=== PATIENT | female | born 1990 | race Caucasian/White ===

== ENCOUNTER 2018-02-13 12:48 | Emergency (ER) | payer OTHER ==
--- NOTE | 2018-02-13 13:43 | PHYS DOC ---
Adult General Chief Complaint Chief Complaint: ABDOMINAL PAIN [facility] HPI 27-year-old female presents with right upper quadrant abdominal pain. The patient was diagnosed a few months ago with gallstones. She was unable to schedule surgery at that time. She was feeling well until last month when she began to have pain after eating almost any food. She presents today because the pain started last night and has not let up. She had one episode of vomiting this morning. She is concerned she might have a stone obstructing the common bile duct. She denies fever or chills. Review of Systems Review of Systems Constitutional: Denies fever or chills [] Eyes: Denies change in visual acuity, redness, or eye pain [] HENT: Denies nasal congestion or sore throat [] Respiratory: Denies cough or shortness of breath [] Cardiovascular: No additional information not addressed in HPI [] GI: Right upper quadrant abdominal pain, vomiting[] : Denies dysuria or hematuria [] Musculoskeletal: Denies back pain or joint pain [] Integument: Denies rash or skin lesions [] Neurologic: Denies headache, focal weakness or sensory changes [] Endocrine: Denies polyuria or polydipsia [] All other systems were reviewed and found to be within normal limits, except as documented in this note. Allergies Allergies Allergies Coded Allergies Type Severity Reaction Last Updated Verified No Known Drug Allergies 02/13/18 No Physical Exam Physical Exam Constitutional: Well developed, well nourished, no acute distress, non-toxic appearance. [] HENT: Normocephalic, atraumatic, bilateral external ears normal, oropharynx moist, no oral exudates, nose normal. [] Eyes: PERRLA, EOMI, conjunctiva normal, no discharge. [] Neck: Normal range of motion, no tenderness, supple, no stridor. [] Cardiovascular:Heart rate regular rhythm, no murmur [] Lungs & Thorax: Bilateral breath sounds clear to auscultation [] Abdomen: Bowel sounds normal, soft. Epigastric and right upper quadrant tenderness with guarding.[] Skin: Warm, dry, no erythema, no rash. [] Back: No tenderness, no CVA tenderness. [] Extremities: No tenderness, no cyanosis, no clubbing, ROM intact, no edema. [] Neurologic: Alert and oriented X 3, normal motor function, normal sensory function, no focal deficits noted. [] Psychologic: Affect normal, judgement normal, mood normal. [] EKG EKG [] Radiology/Procedures Radiology/Procedures [] Course & Med Decision Making Course & Med Decision Making Pertinent Labs and Imaging studies reviewed. (See chart for details) The patient's labs are unremarkable. This pain is likely related to her gallbladder disease. She does not appear to have an obstruction or infection at this time. I will discharge her with Toradol oral medication to see if this helps better than [id number] medicines. The patient has also had a cough for a couple of weeks. I do not have evidence of strep or bacterial infection. This is likely viral induced cough. I will give her a trial of Tessalon Perles. She is stable for discharge at this time. [] Dragon Disclaimer Dragon Disclaimer This electronic medical record was generated, in whole or in part, using a voice recognition dictation system. Departure Departure: Referrals: THADDEUS NORIEGA DO, MPH (PCP) Scripts Benzonatate (TESSALON PERLE) 100 Mg Capsule 1 CAP PO TID PRN for COUGH, #30 CAP Prov: AUSTIN JUNE DO 02/13/18 Ketorolac Tromethamine (KETOROLAC TROMETHAMINE) 10 Mg Tablet 1 TAB PO PRN Q6HRS PRN for PAIN, #20 TAB Prov: AUSTIN JUNE DO 02/13/18 AUSTIN JUNE DO Feb 13, 2018 13:43
[2018-02-13 13:55] LABS: BASO # 0.1 x10^3/uL (0.0-0.2); BASO % 1 % (0-3); EOS # 0.2 x10^3/uL (0.0-0.7); EOS % 2 % (0-3); HEMATOCRIT 37.2 % (36.0-47.0); HEMOGLOBIN 12.5 g/dL (12.0-15.5); LYMPH # 2.3 x10^3/uL (1.0-4.8); LYMPH % 28 % (24-48); MEAN CORPUSCULAR HEMOGLOBIN 29 pg (25-35); MEAN CORPUSCULAR HGB CONC 34 g/dL (31-37); MEAN CORPUSCULAR VOLUME 87 fL (79-100); MONO # 0.5 x10^3/uL (0.0-1.1); MONO % 7 % (0-9); NEUT # 5.1 x10^3uL (1.8-7.7); NEUT % 62 % (31-73); PLATELET COUNT 354 x10^3/uL (140-400); RED BLOOD COUNT 4.28 x10^6/uL (3.50-5.40); RED CELL DISTRIBUTION WIDTH 12.5 % (11.5-14.5); WHITE BLOOD COUNT 8.1 x10^3/uL (4.0-11.0)
[2018-02-13] MEDS ORDERED: ONDANSETRON ODT 4 MG TAB.RAPDIS PO ONE (14:00)
[2018-02-13] MEDS ORDERED: ONDANSETRON PF 4 MG/2 ML VIAL. IV ONE (14:00)
[2018-02-13 14:09] LABS: ALBUMIN 3.3 g/dL (3.4-5.0); ALBUMIN/GLOBULIN RATIO 0.8 (1.0-1.7); CALCIUM 8.6 mg/dL (8.5-10.1); CREATININE 0.7 mg/dL (0.6-1.0); POTASSIUM 3.6 mmol/L (3.5-5.1); TOTAL BILIRUBIN 0.9 mg/dL (0.2-1.0); TOTAL PROTEIN 7.2 g/dL (6.4-8.2)
[2018-02-13 14:40] VITALS: BP 116/68
[2018-02-13] MEDS ORDERED: BENZ100C PO (14:47)
[2018-02-13] MEDS ORDERED: KETO10TA PO (14:47)
== END 2018-02-13 14:53 | disposition home or self-care (01) ==
LOC: ER 12:48
DX: R10.11 Right upper quadrant pain (principal); R11.11 Vomiting without nausea; R05 Cough
CPT/HCPCS: 36415; 80053; 85025; 99284; Q0162

== ENCOUNTER 2018-03-06 13:43 | Emergency (ER) | payer OTHER ==
[~2018-03-06] VITALS: Ht 160 cm; Wt 61.2 kg
[~2018-03-06 13:43] MED LIST: BENZ100C PO; KETO10TA PO
[2018-03-06] MEDS ORDERED: ONDANSETRON ODT 4 MG TAB.RAPDIS PO ONE (14:30)
--- NOTE | 2018-03-06 15:04 | RAD ---
CT of the head without contrast, 03/06/2018: HISTORY: Head trauma, visual disturbance The ventricles are within normal limits in size. There is no shift of the midline structures. There is no evidence of acute intracranial hemorrhage or mass effect. There is mucosal thickening in the maxillary, ethmoid and frontal sinuses bilaterally. An air-fluid level is present in the left maxillary sinus. IMPRESSION: 1. No acute intracranial abnormality is detected. 2. Bilateral paranasal sinusitis PQRS Compliance Statement: One or more of the following individualized dose reduction techniques were utilized for this examination: 1. Automated exposure control 2. Adjustment of the mA and/or kV according to patient size 3. Use of iterative reconstruction technique Electronically signed by: Lui Luther MD (03/06/2018 3:01 PM) [facility]
[2018-03-06 15:13] VITALS: BP 115/65
[2018-03-06] MEDS ORDERED: ONDA4TAB7 PO (15:24)
[2018-03-06] MEDS ORDERED: IBUP600T16 PO (15:24)
--- NOTE | 2018-03-06 15:24 | PHYS DOC ---
Past History Past Medical History: No Pertinent History Past Surgical History: No Surgical History Alcohol Use: None Drug Use: None Adult General Chief Complaint Chief Complaint: head injury HPI HPI Patient is a 27 year old female who presents with complaining of head injury. Patient states she was at work 3 days ago and hit the back of her head wall metal against the loss of consciousness. Patient states she had headache that improved yesterday but today she had 1 episode of vomiting and complaining of confusion and blurred vision with headache she was at work without focal neuro deficit, fever and chills, chest pain and shortness of breath. Patient was sent to her primary care physician as a work comp injury and sent to ER for CT of her head. Review of Systems Review of Systems Constitutional: Denies fever or chills [] Eyes: Denies change in visual acuity, redness, or eye pain [] HENT: Denies nasal congestion or sore throat [] Respiratory: Denies cough or shortness of breath [] Cardiovascular: No additional information not addressed in HPI [] GI: Denies abdominal pain, bloody stools or diarrhea, reports nausea and vomiting [] : Denies dysuria or hematuria [] Musculoskeletal: Denies back pain or joint pain [] Integument: Denies rash or skin lesions [] Neurologic: Reports headache, denies focal weakness or sensory changes [] Endocrine: Denies polyuria or polydipsia [] All other systems were reviewed and found to be within normal limits, except as documented in this note. Current Medications Current Medications Current Medications Medications (Trade) Dose Ordered Sig/Mamta Start Time Stop Time Status Last Admin Dose Admin Ibuprofen (Motrin) 600 mg 1X ONCE 03/06/18 15:15 03/06/18 15:16 UNV Ondansetron HCl (Zofran Odt) 4 mg 1X ONCE 03/06/18 14:30 03/06/18 14:31 DC 03/06/18 14:19 4 MG Allergies Allergies Allergies Coded Allergies Type Severity Reaction Last Updated Verified No Known Drug Allergies 02/13/18 No Physical Exam Physical Exam Constitutional: Well developed, well nourished, mild distress, non-toxic appearance. [] HENT: Normocephalic, atraumatic, bilateral external ears normal, oropharynx moist, no oral exudates, nose normal. [] Eyes: PERRLA, EOMI, conjunctiva normal, no discharge. [] Neck: Normal range of motion, no tenderness, supple, no stridor. [] Cardiovascular:Heart rate regular rhythm, no murmur [] Lungs & Thorax: Bilateral breath sounds clear to auscultation [] Abdomen: Bowel sounds normal, soft, no tenderness, no masses, no pulsatile masses. [] Skin: Warm, dry, no erythema, no rash. [] Back: No tenderness, no CVA tenderness. [] Extremities: No tenderness, no cyanosis, no clubbing, ROM intact, no edema. [] Neurologic: Alert and oriented X 3, normal motor function, normal sensory function, no focal deficits noted. [] Psychologic: Affect normal, judgement normal, mood normal. [] Current Patient Data Vital Signs Vital Signs Date Time Temp Pulse Resp B/P (MAP) Pulse Ox O2 Delivery O2 Flow Rate FiO2 03/06/18 13:43 98.7 73 18 99 Room Air EKG EKG [] Radiology/Procedures Radiology/[place] [id number] IMAGING REPORT Signed PATIENT: GIGI CAMPA ACCOUNT: [id number] : 1990 LOCATION: ER AGE: 27 SEX: F EXAM STATUS: REG ER ORD. PHYSICIAN: SANNA FATIMA MD REASON: injury PROCEDURE: CT HEAD WO CONTRAST CT of the head without contrast, 03/06/2018: HISTORY: Head trauma, visual disturbance The ventricles are within normal limits in size. There is no shift of the midline structures. There is no evidence of acute intracranial hemorrhage or mass effect. There is mucosal thickening in the maxillary, ethmoid and frontal sinuses bilaterally. An air-fluid level is present in the left maxillary sinus. IMPRESSION: 1. No acute intracranial abnormality is detected. 2. Bilateral paranasal sinusitis PQRS Compliance Statement: One or more of the following individualized dose reduction techniques were utilized for this examination: 1. Automated exposure control 2. Adjustment of the mA and/or kV according to patient size 3. Use of iterative reconstruction technique Electronically signed by: Lui Luther MD (03/06/2018 3:01 PM) [facility] DICTATED AND SIGNED BY: LUI LUTHER MD DATE: 03/06/18 1459 CC: SANNA FATIMA MD; THADDEUS NORIEGA DO, MPH ~ Course & Med Decision Making Course & Med Decision Making Pertinent Imaging studies reviewed. (See chart for details) Evolution of patient in ER showed 27-year-old female patient with head injury 2 days ago and complaining of confusion and nausea and vomiting. Patient had unremarkable CT head except for paranasal sinusitis and physical exam without sinus tenderness and felt better with Zofran and ibuprofen. Plan discharge patient home to diagnose of concussion. Dragon Disclaimer Dragon Disclaimer This electronic medical record was generated, in whole or in part, using a voice recognition dictation system. Departure Departure: Impression: Primary Impression: Concussion Additional Impressions: Nausea and vomiting Sinusitis Disposition: HOME, SELF-CARE (at 1522) Condition: IMPROVED Referrals: THADDEUS NORIEGA DO, MPH (PCP) Patient Instructions: Concussion and Brain Injury, Nausea and Vomiting Additional Instructions: Drink plenty of liquids Follow-up with your primary care physician in 3-5 days Return to ER if not getting better Scripts Ondansetron Hcl (ZOFRAN) 4 Mg Tablet 1 TAB PO Q6HRS for nausea and vomiting, #12 TAB Prov: SANNA FATIMA MD 03/06/18 Ibuprofen (IBUPROFEN) 600 Mg Tablet 600 MG PO TID for pain, #20 TAB Prov: SANNA FATIMA MD 03/06/18 Problem Qualifiers SANNA FATIMA MD Mar 06, 2018 15:24
[2018-03-06] MEDS ORDERED: IBUPROFEN 600 MG TABLET. PO ONE (15:30)
== END 2018-03-06 15:40 | disposition home or self-care (01) ==
LOC: ER 13:43
DX: S06.0X1A Concussion with loss of consciousness of 30 minutes or less, initial encounter (principal); J32.8 Other chronic sinusitis; R11.2 Nausea with vomiting, unspecified; W22.01XA Walked into wall, initial encounter; Y93.89 Activity, other specified; Y92.89 Other specified places as the place of occurrence of the external cause; Y99.0 Civilian activity done for income or pay
CPT/HCPCS: 70450; 99284; Q0162

== ENCOUNTER 2018-10-09 13:21 | Emergency (ER) | payer OTHER ==
[~2018-10-09 13:21] MED LIST changes: +IBUP600T16 PO; +ONDA4TAB7 PO
[2018-10-09 13:42] VITALS: BP 123/75
[2018-10-09] MEDS ORDERED: IV NORMAL SALINE 1,000ML 1,000 ML IV SCH (13:44)
--- NOTE | 2018-10-09 13:48 | PHYS DOC ---
Past History Past Medical History: Migraines, Other Past Surgical History: No Surgical History Alcohol Use: None Drug Use: None Adult General Chief Complaint Chief Complaint: ABDOMINAL PAIN HPI HPI Patient is a 28 year old female who presents with complaint of left-sided abdominal pain. Patient states that her symptoms started 2 days ago. Notes the pain has been constant along the left side of her abdomen and towards her pelvis. Notes that she has also been passing dark stools and what appears to be dark red blood. States that she is on ibuprofen for treatment of migraines. Isidro riddle was told by her primary doctor to stop taking her ibuprofen and come to the emergency department for evaluation due to concern for GI bleeding. Has not had any fevers. Denies any shortness of breath or chest pain currently. Review of Systems Review of Systems Constitutional: Denies fever or chills [] Eyes: Denies change in visual acuity, redness, or eye pain [] HENT: Denies nasal congestion or sore throat [] Respiratory: Denies cough or shortness of breath [] Cardiovascular: Denies chest pain or edema[] GI: Abdominal pain, bloody stool, denies vomiting[] : Denies dysuria or hematuria [] Musculoskeletal: Denies back pain or joint pain [] Integument: Denies rash or skin lesions [] Neurologic: Denies headache, focal weakness or sensory changes [] All other systems were reviewed and found to be within normal limits, except as documented in this note. Allergies Allergies Allergies Coded Allergies Type Severity Reaction Last Updated Verified No Known Drug Allergies 02/13/18 No Physical Exam Physical Exam Constitutional: Alert, afebrile, appears in moderate discomfort. [] HENT: Normocephalic, atraumatic, bilateral external ears normal, oropharynx moist, no oral exudates, nose normal. [] Eyes: PERRLA, EOMI, conjunctiva normal, no discharge. [] Neck: Normal range of motion, no tenderness, supple, no stridor. [] Cardiovascular:Heart rate regular rhythm, no murmur [] Lungs & Thorax: Bilateral breath sounds clear to auscultation [] Abdomen: Bowel sounds normal, soft, left upper and lower quadrant tenderness to palpation, no masses, no pulsatile masses. Rectal: No external hemorrhoids, nontender on exam, hard dark brown stool palpated, no gross blood[] Skin: Warm, dry, no erythema, no rash. [] Back: No tenderness, no CVA tenderness. [] Extremities: No tenderness, no cyanosis, no clubbing, ROM intact, no edema. [] Neurologic: Alert and oriented X 3, normal motor function, normal sensory function, no focal deficits noted. [] Current Patient Data Vital Signs Vital Signs Date Time Temp Pulse Resp B/P (MAP) Pulse Ox O2 Delivery O2 Flow Rate FiO2 10/09/18 13:42 98.3 82 18 100 Room Air Lab Results Laboratory Tests Test 10/09/18 13:50 10/09/18 14:30 10/09/18 14:47 White Blood Count 7.4 x10^3/uL Red Blood Count 4.40 x10^6/uL Hemoglobin 13.2 g/dL Hematocrit 39.7 % Mean Corpuscular Volume 90 fL Mean Corpuscular Hemoglobin 30 pg Mean Corpuscular Hemoglobin Concent 33 g/dL Red Cell Distribution Width 12.7 % Platelet Count 305 x10^3/uL Neutrophils (%) (Auto) 50 % Lymphocytes (%) (Auto) 39 % Monocytes (%) (Auto) 6 % Eosinophils (%) (Auto) 4 % Basophils (%) (Auto) 1 % Neutrophils # (Auto) 3.7 x10^3uL Lymphocytes # (Auto) 2.9 x10^3/uL Monocytes # (Auto) 0.5 x10^3/uL Eosinophils # (Auto) 0.3 x10^3/uL Basophils # (Auto) 0.1 x10^3/uL Sodium Level 141 mmol/L Potassium Level 3.9 mmol/L Chloride Level 105 mmol/L Carbon Dioxide Level 28 mmol/L Anion Gap 8 Blood Urea Nitrogen 9 mg/dL Creatinine 0.7 mg/dL Estimated GFR (Cockcroft-Gault) 101.1 BUN/Creatinine Ratio 13 Glucose Level 87 mg/dL Calcium Level 8.4 mg/dL Total Bilirubin 0.3 mg/dL Aspartate Amino Transf (AST/SGOT) < 5 U/L Alanine Aminotransferase (ALT/SGPT) 14 U/L Alkaline Phosphatase 45 U/L Total Protein 6.3 g/dL Albumin 3.2 g/dL Albumin/Globulin Ratio 1.0 Lipase 88 U/L Urine Collection Type Unknown Urine Color Yellow Urine Clarity Clear Urine pH 7.5 Urine Specific [place] 1.015 Urine Protein Neg Urine Glucose (UA) Neg mg/dL Urine Ketones (Stick) Neg mg/dL Urine Blood Neg Urine Nitrite Neg Urine Bilirubin Neg Urine Urobilinogen Dipstick 0.2 mg/dL Urine Leukocyte Esterase Trace Urine RBC 0 /HPF Urine WBC Occ /HPF Urine Squamous Epithelial Cells Occ /LPF Urine Bacteria Few /HPF Stool Occult Blood Negative Bedside Urine HCG, Qualitative hcg negative Current Medications Medications (Trade) Dose Ordered Sig/Mamta Route PRN Reason Start Time Stop Time Status Last Admin Dose Admin Fentanyl Citrate (Fentanyl 2ml Vial) 50 mcg PRN Q15MIN PRN IV PAIN GREATER THAN 3/10 10/09/18 14:15 10/10/18 14:14 Sodium Chloride 1,000 ml @ 1,000 mls/hr Q1H IV 10/09/18 13:44 10/09/18 14:43 DC 10/09/18 13:56 Ondansetron HCl (Zofran) 4 mg 1X ONCE IV 10/09/18 14:15 10/09/18 14:16 DC 10/09/18 13:56 Famotidine (Pepcid Vial) 20 mg 1X ONCE IVP 10/09/18 14:15 10/09/18 14:16 DC 10/09/18 13:56 Iohexol (Omnipaque 300 Mg/ml) 75 ml 1X ONCE IV 10/09/18 14:15 10/09/18 14:16 DC 10/09/18 14:58 EKG EKG Not performed[] Radiology/Procedures Radiology/Procedures [place] [id number] IMAGING REPORT Signed PATIENT: GIGI CAMPA ACCOUNT: [id number] : 1990 LOCATION: ER AGE: 28 SEX: F EXAM STATUS: REG ER ORD. PHYSICIAN: ALICIA PECK MD REASON: left sided abdominal pain, blood in stool PROCEDURE: CT ABD PELV W/ IV CONTRST ONLY CT ABD PELV W/ IV CONTRST ONLY Indication: Left-sided abdominal pain, blood in stool Technique: Postcontrast CT imaging was performed of the abdomen pelvis, multiplanar reconstruction images submitted. No oral contrast was given. One or more of the following individualized dose reduction techniques were utilized for this examination: 1. Automated exposure control 2. Adjustment of the mA and/or kV according to patient size 3. Use of iterative reconstruction technique. Comparison: None Findings: There is no abnormality of the limited visualized lung bases. No focal abnormality is identified of the liver, spleen, pancreas. Gallbladder is present without obvious intraluminal abnormality by CT. Both kidneys enhance no hydronephrosis. There is small 0.2 cm likely mid left renal calculus. There is mild distention of the urinary bladder. Accurate evaluation of bowel somewhat limited without oral contrast. Bowel is not considered significantly dilated. There is relative wall prominence of segments of the small bowel in the left abdomen. There is some variable retained stool the colon. At least a segment of normal appendix is believed to be visualized, no significant pericecal inflammatory type change. There may be some small cysts or follicles of the left adnexa. Uterus is deviated to the right. IMPRESSION: 1. There is probable degree of small bowel thickening in the left abdomen as may be seen with enteritis, limited evaluation of bowel without oral contrast. There is variable retained stool in the colon. At least a segment of normal appendix is believed to be visualized. 2. There is suspected small nonobstructive left renal calculus. Electronically signed by: Christiano Lucio MD (10/09/2018 3:17 PM) [id number] DICTATED AND SIGNED BY: CHRISTIANO LUCIO MD DATE: 10/09/18 1517 CC: ALICIA PECK MD; THADDEUS NORIEGA DO, MPH ~ [] Course & Med Decision Making Course & Med Decision Making Pertinent Labs and Imaging studies reviewed. (See chart for details) Patient was given IV fluids, fentanyl, and Zofran. CT imaging shows no acute surgical process causing patient's current symptoms. Mild small bowel thicke sophie was noted that could signify enteritis. Patient does not have fever or leukocytosis. Moderate amount of stool appears throughout the colon. Symptoms may be affected by constipation. Patient prescribed Zofran and Bentyl for outpatient treatment. Also advised to take daily MiraLAX. Recommended follow- up with primary doctor in 2 days. No evidence of acute bleeding based off of today's examination. Advised return to emergency department for any worsening symptoms. Patient was understanding and in agreement with treatment plan.[] Dragon Disclaimer Dragon Disclaimer This electronic medical record was generated, in whole or in part, using a voice recognition dictation system. Departure Departure: Impression: Primary Impression: Abdominal pain Disposition: HOME, SELF-CARE Condition: IMPROVED Referrals: THADDEUS NORIEGA DO, MPH (PCP) Patient Instructions: Abdominal Pain (Nonspecific) Additional Instructions: Your examination and testing thankfully showed no evidence of acute bleeding at today's visit. Your symptoms may be affected by constipation. His recommended that you start treatment with MiraLAX available [id number] once daily. Follow-up with your primary doctor in 2 days for reevaluation. Return to the emergency department for any worsening symptoms. Scripts Ondansetron (ONDANSETRON ODT) 4 Mg Tab.rapdis 1 TAB PO PRN Q6-8HRS PRN for NAUSEA/VOMITING, #16 TAB Prov: ALICIA PECK MD 10/09/18 Dicyclomine Hcl (DICYCLOMINE HCL) 20 Mg Tablet 1 TAB PO TID, #30 TAB 0 Refills Prov: ALICIA PECK MD 10/09/18 Problem Qualifiers Primary Impression: Abdominal pain Abdominal location: left upper quadrant Qualified Codes: R10.12 - Left upper quadrant pain ALICIA PECK MD Oct 09, 2018 13:48
[2018-10-09 14:13] LABS: BASO # 0.1 x10^3/uL (0.0-0.2); BASO % 1 % (0-3); EOS # 0.3 x10^3/uL (0.0-0.7); EOS % 4 % (0-3); HEMATOCRIT 39.7 % (36.0-47.0); HEMOGLOBIN 13.2 g/dL (12.0-15.5); LYMPH # 2.9 x10^3/uL (1.0-4.8); LYMPH % 39 % (24-48); MEAN CORPUSCULAR HEMOGLOBIN 30 pg (25-35); MEAN CORPUSCULAR HGB CONC 33 g/dL (31-37); MEAN CORPUSCULAR VOLUME 90 fL (79-100); MONO # 0.5 x10^3/uL (0.0-1.1); MONO % 6 % (0-9); NEUT # 3.7 x10^3uL (1.8-7.7); NEUT % 50 % (31-73); PLATELET COUNT 305 x10^3/uL (140-400); RED CELL DISTRIBUTION WIDTH 12.7 % (11.5-14.5); WHITE BLOOD COUNT 7.4 x10^3/uL (4.0-11.0)
[2018-10-09] MEDS ORDERED: ONDANSETRON PF 4 MG/2 ML VIAL. IV ONE (14:15)
[2018-10-09] MEDS ORDERED: FAMOTIDINE 20 MG/2 ML VIAL IVP ONE (14:15)
[2018-10-09] MEDS ORDERED: IOHEXOL 300 MG/ML 75 ML VIAL. IV ONE (14:15)
[2018-10-09 14:29] LABS: ALBUMIN 3.2 g/dL (3.4-5.0); ALK PHOS 45 U/L (46-116); ALT (SGPT) 14 U/L (14-59); ANION GAP 8 (6-14); AST (SGOT) < 5 U/L (15-37); BLOOD UREA NITROGEN 9 mg/dL (7-20); BUN/CREATININE RATIO 13 (6-20); CALCIUM 8.4 mg/dL (8.5-10.1); CARBON DIOXIDE 28 mmol/L (21-32); CHLORIDE 105 mmol/L (98-107); CREATININE 0.7 mg/dL (0.6-1.0); GFR 101.1; GLUCOSE 87 mg/dL (70-99); LIPASE 88 U/L (73-393); POTASSIUM 3.9 mmol/L (3.5-5.1); SODIUM 141 mmol/L (136-145); TOTAL BILIRUBIN 0.3 mg/dL (0.2-1.0); TOTAL PROTEIN 6.3 g/dL (6.4-8.2)
[2018-10-09 14:54] LABS: BILIRUBIN,URINE NEG (NEG); CLARITY,URINE CLEAR; COLOR,URINE YELLOW; GLUCOSE,URINE NEG (NEG)
[2018-10-09 14:55] LABS: BACTERIA,URINE FEW /HPF (0-FEW); FECAL OB PT NEGATIVE (NEG); NITRITE,URINE NEG (NEG); RBC,URINE 0 /HPF (0-2); SQUAMOUS EPITHELIAL CELL,UR OCC /LPF; UROBILINOGEN,URINE 0.2 mg/dL (0.2 mg/dL); WBC,URINE OCC /HPF (0-4)
--- NOTE | 2018-10-09 15:20 | RAD ---
CT ABD PELV W/ IV CONTRST ONLY Indication: Left-sided abdominal pain, blood in stool Technique: Postcontrast CT imaging was performed of the abdomen pelvis, multiplanar reconstruction images submitted. No oral contrast was given. One or more of the following individualized dose reduction techniques were utilized for this examination: 1. Automated exposure control 2. Adjustment of the mA and/or kV according to patient size 3. Use of iterative reconstruction technique. Comparison: None Findings: There is no abnormality of the limited visualized lung bases. No focal abnormality is identified of the liver, spleen, pancreas. Gallbladder is present without obvious intraluminal abnormality by CT. Both kidneys enhance no hydronephrosis. There is small 0.2 cm likely mid left renal calculus. There is mild distention of the urinary bladder. Accurate evaluation of bowel somewhat limited without oral contrast. Bowel is not considered significantly dilated. There is relative wall prominence of segments of the small bowel in the left abdomen. There is some variable retained stool the colon. At least a segment of normal appendix is believed to be visualized, no significant pericecal inflammatory type change. There may be some small cysts or follicles of the left adnexa. Uterus is deviated to the right. IMPRESSION: 1. There is probable degree of small bowel thickening in the left abdomen as may be seen with enteritis, limited evaluation of bowel without oral contrast. There is variable retained stool in the colon. At least a segment of normal appendix is believed to be visualized. 2. There is suspected small nonobstructive left renal calculus. Electronically signed by: Luis Handley MD (10/09/2018 3:17 PM) [id number]
[2018-10-09] MEDS ORDERED: DICY20TA3 PO (16:09)
[2018-10-09] MEDS ORDERED: ONDA4TAB12 PO (16:09)
== END 2018-10-09 16:25 | disposition home or self-care (01) ==
LOC: ER 13:21
DX: R10.12 Left upper quadrant pain (principal); R10.32 Left lower quadrant pain; K92.1 Melena; G43.909 Migraine, unspecified, not intractable, without status migrainosus
CPT/HCPCS: 36415; 74177; 80053; 81001; 81025; 82274; 83690; 85025; 87086; 96374; 96375; 99285; J2405; J3490; Q9967; J3010; J7030

== ENCOUNTER 2019-10-12 15:04 | Emergency (ER) | payer OTHER ==
[~2019-10-12] VITALS: Ht 160 cm; Wt 80.7 kg
[~2019-10-12 15:04] MED LIST changes: +DICY20TA3 PO; +ONDA4TAB12 PO
[2019-10-12 15:17] VITALS: BP 134/77
[2019-10-12 16:33] LABS: CALCIUM 8.7 mg/dL (8.5-10.1); CREATININE 0.9 mg/dL (0.6-1.0); GFR 75.1; POTASSIUM 3.7 mmol/L (3.5-5.1)
--- NOTE | 2019-10-12 17:33 | PHYS DOC ---
Past History Past Medical History: Depression, Migraines, Other Additional Past Medical Histor: TBI 2019 Past Surgical History: Other Additional Past Surgical Histo: abdominal hernia repair, multiple D&Cs Alcohol Use: None Drug Use: None Adult General Chief Complaint Chief Complaint: Palpitations HPI HPI Patient is a [age] year old [sex] who presents with [] Review of Systems Review of Systems Constitutional: Denies fever or chills [] Eyes: Denies change in visual acuity, redness, or eye pain [] HENT: Denies nasal congestion or sore throat [] Respiratory: Denies cough or shortness of breath [] Cardiovascular: No additional information not addressed in HPI [] GI: Denies abdominal pain, nausea, vomiting, bloody stools or diarrhea [] : Denies dysuria or hematuria [] Musculoskeletal: Denies back pain or joint pain [] Integument: Denies rash or skin lesions [] Neurologic: Denies headache, focal weakness or sensory changes [] Endocrine: Denies polyuria or polydipsia [] All other systems were reviewed and found to be within normal limits, except as documented in this note. Allergies Allergies Allergies Coded Allergies Type Severity Reaction Last Updated Verified No Known Drug Allergies 02/13/18 No Physical Exam Physical Exam Constitutional: Well developed, well nourished, no acute distress, non-toxic appearance. [] HENT: Normocephalic, atraumatic, bilateral external ears normal, oropharynx mois t, no oral exudates, nose normal. [] Eyes: PERRLA, EOMI, conjunctiva normal, no discharge. [] Neck: Normal range of motion, no tenderness, supple, no stridor. [] Cardiovascular:Heart rate regular rhythm, no murmur [] Lungs & Thorax: Bilateral breath sounds clear to auscultation [] Abdomen: Bowel sounds normal, soft, no tenderness, no masses, no pulsatile masses. [] Skin: Warm, dry, no erythema, no rash. [] Back: No tenderness, no CVA tenderness. [] Extremities: No tenderness, no cyanosis, no clubbing, ROM intact, no edema. [] Neurologic: Alert and oriented X 3, normal motor function, normal sensory function, no focal deficits noted. [] Psychologic: Affect normal, judgement normal, mood normal. [] Current Patient Data Vital Signs Vital Signs Date Time Temp Pulse Resp B/P (MAP) Pulse Ox O2 Delivery O2 Flow Rate FiO2 10/12/19 15:17 99.2 84 16 134/77 (96) 98 Room Air Lab Results Laboratory Tests Test 10/12/19 15:30 10/12/19 15:40 Sodium Level 137 mmol/L (136-145) Potassium Level 3.7 mmol/L (3.5-5.1) Chloride Level 102 mmol/L (98-107) Carbon Dioxide Level 26 mmol/L (21-32) Anion Gap 9 (6-14) Blood Urea Nitrogen 11 mg/dL (7-20) Creatinine 0.9 mg/dL (0.6-1.0) Estimated GFR (Cockcroft-Gault) 75.1 Glucose Level 104 mg/dL (70-99) H Calcium Level 8.7 mg/dL (8.5-10.1) Magnesium Level 1.8 mg/dL (1.8-2.4) POC Urine HCG, Qualitative hcg negative (Negative) EKG EKG [] Radiology/Procedures Radiology/Procedures [] Course & Med Decision Making Course & Med Decision Making Pertinent Labs and Imaging studies reviewed. (See chart for details) [] Dragon Disclaimer Dragon Disclaimer This electronic medical record was generated, in whole or in part, using a voice recognition dictation system. Departure Departure: Impression: Primary Impression: PVC (premature ventricular contraction) Disposition: 01 HOME/RESIDENCE PRIOR TO ADM Condition: STABLE Referrals: PCP,UNKNOWN (PCP) Patient Instructions: Premature Ventricular Contraction Additional Instructions: If they do not resolve by Tuesday, please call your primary care physician to be placed on a cardiac holter monitor. Justification of Admission: Justification of Admission: Justification of Admission Dx: EBONY Parker MD Oct 12, 2019 17:33
--- NOTE | 2019-10-12 20:21 | EKG ---
[address] [address] Test Date: 2019-10-12 Test Time: 15:11:20 Pat Name: GIGI CAMPA Department: Room: Gender: F Transportation Escort: : 1990 Requested By: EBONY LANDRUM Order Number: [id number] Reading MD: Measurements Intervals [place] Rate: 78 P: 29 LA: 162 QRS: 32 QRSD: 74 T: -4 QT: 376 QTc: 432 Interpretive Statements SINUS RHYTHM NORMAL ECG RI6.02 No previous ECG available for comparison
== END 2019-10-12 17:45 | disposition home or self-care (01) ==
LOC: ER 15:04
DX: I49.3 Ventricular premature depolarization (principal); F32.9 Major depressive disorder, single episode, unspecified; G43.909 Migraine, unspecified, not intractable, without status migrainosus
CPT/HCPCS: 36415; 80048; 81025; 83735; 93005; 99284